=== PATIENT | female | born 1985 | race Caucasian/White ===

== ENCOUNTER 2022-10-03 10:05 | Emergency (ER) | payer BC, SELFPAY ==
[2022-10-03 10:12] VITALS: BP 140/93; PULSE 96; RESP 16; O2SAT 98; BMI 37.1
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
[2022-10-03 10:55] LABS: Internal Control Within Normal Limits; Strep A Antigen Screen Negative
[2022-10-03] MEDS: ONDANSETRON 4 MG RAPDIS TABLET SL (11:28)
[2022-10-03] MEDS: ORPHENADRINE 60 MG/ 2 ML VIAL IM (11:28)
--- NOTE | 2022-10-03 11:34 | PC.NURSE ---
PT GIVEN PO ZOFRAN
[2022-10-03 12:05] LABS: Bilirubin Urine SMALL (NEGATIVE); Blood Urine SMALL (NEGATIVE); Clarity Urine CLEAR (CLEAR); Color Urine YELLOW (YELLOW); Glucose Urine UA NEGATIVE (NEGATIVE); Ketones Urine NEGATIVE (NEGATIVE); Leukocyte Esterase Urine NEGATIVE (NEGATIVE); Nitrite Urine POSITIVE (NEGATIVE); Protein Urine 100 mg/dL (NEG/TRACE); Specific Gravity Urine 1.025 (1.005-1.025); Urobilinogen Urine 0.2 EU/dL (0.2-1.0)
[2022-10-03 12:06] LABS: Urine Microscopic Indicated YES
[2022-10-03 12:23] LABS: Bacteria Urine TRACE #/HPF (NONE SEEN)
[2022-10-03 12:24] LABS: Calcium Oxalate Crystals Urine FEW; Cast Seen? NONE SEEN #/LPF (NONE SEEN); Crystals Seen? Seen #/HPF (None Seen); Mucus Urine TRACE (NONE SEEN); Squamous Epithelial Cell Urine MANY #/LPF (NONE/RARE); Urine Culture Indicated YES
== END 2022-10-03 12:39 | disposition home or self-care (01) ==
PROVIDERS: Emergency Provider Emergency Medicine
DX: N39.0 Urinary tract infection, site not specified (principal); B34.9 Viral infection, unspecified; R11.2 Nausea with vomiting, unspecified; T21.02XA Burn of unspecified degree of abdominal wall, initial encounter; X15.3XXA Contact with hot saucepan or skillet, initial encounter; Z79.899 Other long term (current) drug therapy; F41.9 Anxiety disorder, unspecified
CPT/HCPCS: 81003; 81015; 87070; 87086; 87150; 87186; 87880; 96372; 99284